=== PATIENT | male | born 1955 ===

== ENCOUNTER 2025-01-09 05:47 | Day surgery (SDC) | payer OTHER ==
[2025-01-01 10:25] VITALS: BP 124/88
[2025-01-01 10:43] LABS: URINE APPEARANCE Clear; URINE BILIRRUBIN Negative (NEGATIVE); URINE BLOOD Negative; URINE COLOR Yellow; URINE GLUCOSE Negative (NEGATIVE); URINE KETONE Negative (NEGATIVE); URINE LEUKOCYTE Negative; URINE NITRATE Negative; URINE PROTEIN Negative (NEGATIVE); URINE UROBILINOGEN 0.2 E.U./dl
[2025-01-01 10:44] LABS: URINE BACTERIA 17.1 uL (0.0-1933); URINE EPITHELIAL CELLS 1.4 uL (0.0-38.8); URINE WBC 4.9 uL (0.0-23.2)
[2025-01-01 10:48] LABS: HEMATOCRIT 40.8 % (39.0-48.0); HEMOGLOBIN 13.5 g/dL (13-16.00); MEAN CELL VOLUME 88.9 fL (80.0-100.00); MEAN CORPUSCULAR HEMOGLOBIN 29.3 pg (27.00-32.0); PLATELET COUNT 264 K/uL (150-450); RED BLOOD COUNT 4.59 M/uL (4.00-6.00); RED CELL DISTRIBUTION WIDTH 14.7 % (11.5-14.5)
[2025-01-01 10:53] LABS: URINE CAST 0.14 uL (0.0-1.40); URINE RBC 1.9 uL (0.0-20.8)
[2025-01-01 11:03] LABS: PARTIAL THROMBOPLASTIN TIME 28.7 SECONDS (22.0-34.0); PROTHROMBIN TIME 10.9 SECONDS (9.0-11.5)
[2025-01-01 12:41] LABS: ALBUMIN 3.6 gm/dL (3.4-5.0); BILIRUBIN TOTAL 0.58 mg/dL (0.3-1.2); CALCIUM 9.6 mg/dL (8.5-10.1); CREATININE SERUM 0.87 mg/dL (0.70-1.30); GFR 87.26; GLOBULINA 3.3 G/DL (2.4-3.5); POTASSIUM 4.29 mEq/L (3.5-5.1); TOTAL PROTEIN 6.9 gm/dL (6.4-8.2)
[~2025-01-09] VITALS: Ht 157.5 cm; Wt 79.4 kg
[~2025-01-09 05:47] MED LIST: LIPITOR20 MG; METFORMIN HCL500 M3 PO; NORVASC10 MG PO; ZESTRIL20 MG PO; [UNRECOGNIZED DRUG - OTHER]
[2025-01-09] MEDS ORDERED: CEFAZOLIN SODIUM 1,000 MG VIAL ONE ×2 (16:32→18:23)
[2025-01-09] MEDS ORDERED: SUGAMMADEX SODIUM 200 MG/2 ML VIAL IV ONE (17:28)
[2025-01-09] MEDS ORDERED: FAMOTIDINE/PF 20 MG/10 ML SYRINGE IV SCH (18:00)
[2025-01-09] MEDS ORDERED: CEFAZOLIN SODIUM 1,000 MG VIAL IV SCH (18:00)
[2025-01-09] MEDS ORDERED: FAMOTIDINE/PF 20 MG/2 ML VIAL ONE (18:24)
[2025-01-09] MEDS ORDERED: MORPHINE SULFATE 4 MG/ML VIAL IV ONE ×2 (19:15→19:45)
== END 2025-01-09 20:40 | disposition home or self-care (01) ==
LOC: CIR.AMB 05:47
PROVIDERS: ATTEND Specialist
DX: K42.0 Umbilical hernia with obstruction, without gangrene (principal); K42.9 Umbilical hernia without obstruction or gangrene; Z88.6 Allergy status to analgesic agent; I10 Essential (primary) hypertension; E11.9 Type 2 diabetes mellitus without complications; K25.9 Gastric ulcer, unspecified as acute or chronic, without hemorrhage or perforation

== ENCOUNTER 2025-04-25 11:22 | Outpatient (CLI) | payer OTHER | END 2025-04-25 11:27 | disposition home or self-care (01) | LOC: RAD 11:22 | PROVIDERS: ATTEND Orthopaedic Surgery | DX: M25.561 Pain in right knee (principal); M25.562 Pain in left knee; M25.511 Pain in right shoulder ==

== ENCOUNTER 2025-05-01 12:46 | Outpatient (CLI) | payer OTHER | END 2025-05-01 12:48 | disposition home or self-care (01) | LOC: RAD 12:46 | PROVIDERS: ATTEND Orthopaedic Surgery | DX: R93.6 Abnormal findings on diagnostic imaging of limbs (principal); M17.0 Bilateral primary osteoarthritis of knee; M21.161 Varus deformity, not elsewhere classified, right knee; M21.162 Varus deformity, not elsewhere classified, left knee ==

== ENCOUNTER 2025-05-11 08:09 | Outpatient (CLI) | payer OTHER | END 2025-05-11 08:12 | disposition home or self-care (01) | LOC: MRI 08:09 | PROVIDERS: ATTEND Urology | DX: N28.1 Cyst of kidney, acquired (principal); M25.121 Fistula, right elbow | CPT/HCPCS: 73221; 74183 ==

== ENCOUNTER 2025-07-26 10:42 | Outpatient (CLI) | payer OTHER | END 2025-07-26 10:44 | disposition home or self-care (01) | LOC: TOM 10:42 | PROVIDERS: ATTEND Orthopaedic Surgery | DX: M25.511 Pain in right shoulder (principal); M75.121 Complete rotator cuff tear or rupture of right shoulder, not specified as traumatic ==